=== PATIENT | female | born 2000 | race Caucasian/White ===

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

== ENCOUNTER 2024-05-19 01:17 | Emergency (ER) | payer OTHER ==
[~2024-05-19] VITALS: Ht 160 cm; Wt 89.0 kg
[2024-05-19] MEDS ORDERED: ONDANSETRON HCl 4 MG/2 ML SDV IV ONE (01:35)
[2024-05-19] MEDS ORDERED: SODIUM CHLORIDE 0.9% 1,000 ML IV ONE (01:35)
[2024-05-19] MEDS ORDERED: DIPHENOXYLATE W/ ATROPINE 2.5 MG TAB PO ONE (01:35)
[2024-05-19 01:53] LABS: BASO% 0.2 % (0-3); IMMATURE GRANULOCYTES 0.9 % (0.0-5.0); LYMPH% 20.8 % (15-41); MEAN CELL VOLUME 86.2 fL CALC (80.0-100.0); MEAN CORPUSCULAR HGB 28.8 pG CALC (26.0-32.0); MEAN CORPUSCULAR HGB CONC 33.4 g/dL CAL (32.0-36.0); MONO% 6.9 % (2-13); NEUT# 11.39 thou/uL (2.00-7.15); NEUT% 70.2 % (42-76); RED BLOOD COUNT 5.66 mill/uL (4.20-5.60); RED CELL DISTRI WIDTH 12.8 % (11.5-15.5)
[2024-05-19 01:54] LABS: HEMATOCRIT 48.8 % (37.0-47.0); HEMOGLOBIN 16.3 g/dl (12.0-16.0)
[2024-05-19 02:01] LABS: ALBUMIN 4.9 g/dL (3.2-5.0); CREATININE 0.9 mg/dL (0.5-1.0); POTASSIUM 3.8 mmol/l (3.5-5.1)
[2024-05-19 02:06] LABS: BILIRUBIN, TOTAL 0.6 mg/dL (0.02-1.3); TOTAL PROTEIN 8.7 g/dL (6.3-8.2)
[2024-05-19] MEDS ORDERED: ONDANSETRON4 MG PO (03:39)
[2024-05-19 03:45] LABS: URINE BLOOD DIPSTICK Negative (NEGATIVE); URINE GLUCOSE - DIPSTICK Negative (NEGATIVE); URINE KETONE Negative (NEGATIVE); URINE LEUK ESTERASE Negative (NEGATIVE); URINE NITRITE - DIPSTICK Negative (Negative); URINE PH 5.5 (4.5-8.0); URINE PROTEIN - DIPSTICK Trace mg/dL (NEG-TRACE); URINE SPECIFIC GRAVITY >=1.030; URINE UROBILINOGEN - DIPSTICK 0.2 E.U./dL (0.2)
[2024-05-19 03:46] LABS: URINE COLOR Yellow
[2024-05-19 04:12] VITALS: BP 114/84
== END 2024-05-19 04:12 | disposition home or self-care (01) | DRG 392 ==
LOC: ED 01:17
PROVIDERS: Family Medicine
DX: K52.9 Noninfective gastroenteritis and colitis, unspecified (principal)